=== PATIENT | female | born 1975 | race African-American/Black ===

== ENCOUNTER 2021-11-25 23:27 | Emergency (ER) | payer SELFPAY ==
[2021-11-25] MEDS ORDERED: ACETAMINOPHEN 500 MG TABLET (FP) PO ONE (23:34)
[2021-11-25] MEDS ORDERED: ACETAMINOPHEN 500 MG TABLET (FP) ONE (23:41)
[2021-11-25 23:42] VITALS: BP 146/86; PULSE 132; TEMP 98.7; BMI 25.0
[2021-11-25] MEDS ORDERED: SODIUM CHLORIDE 0.9% 500 ML INFUS.BAG IV ONE (23:51)
[2021-11-26 01:07] LABS: BASO % 0.3 % (0-2.0); EOS % 0.3 % (0-4.5); HEMATOCRIT 27.3 % (32.4-45.2); HEMOGLOBIN 8.4 GM/dL (10.7-15.3); LYMPH % 33.1 % (8-40); MCH 22.7 pg (25.7-33.7); MCHC 30.9 g/dl (32.0-36.0); MEAN CELL VOLUME 73.5 fl (80-96); NEUT % 55.3 % (42.8-82.8); PLATELET COUNT 375 10^3/uL (134-434); RBC 3.72 M/mm3 (3.60-5.2); RDW 17.6 % (11.6-15.6); WHITE BLOOD COUNT 8.2 K/mm3 (4.0-10.0)
[2021-11-26 01:25] LABS: CHLORIDE 106 mmol/L (98-107); SODIUM 139 mmol/L (136-145)
[2021-11-26 01:27] LABS: CALCIUM 9.7 mg/dL (8.5-10.1)
[2021-11-26 01:28] LABS: ALBUMIN 3.7 g/dl (3.4-5.0); ANION GAP 8 MMOL/L (8-16); BLOOD UREA NITROGEN 15.2 mg/dL (7-18); CO2 26 mmol/L (21-32); GLUCOSE,RANDOM 107 mg/dL (74-106)
[2021-11-26 01:31] LABS: CREATININE 0.9 mg/dL (0.55-1.3); SGOT/AST 16 U/L (15-37); SGPT/ALT 21 U/L (13-61)
[2021-11-26 01:33] LABS: BILIRUBIN,TOTAL 0.5 mg/dL (0.2-1); TOT PROT 7.6 g/dl (6.4-8.2)
[2021-11-26 01:34] LABS: ALK PHOS 77 U/L (45-117)
[2021-11-28 00:07] LABS: SARS-CoV-2 NAA Not Detected (Not Detected)
== END 2021-11-26 01:58 | disposition home or self-care (01) ==
LOC: FER 23:27
DX: R00.0 Tachycardia, unspecified (principal); D64.9 Anemia, unspecified
CPT/HCPCS: 36415; 71046-TC-FY; 80053; 82550; 84484; 85025; 87070; 87804; 93005; 99285-25; C9803; U0003; U0005